=== PATIENT | male | born 1995 | race Caucasian/White ===

== ENCOUNTER 2020-05-07 23:11 | Emergency (ER) | payer SELFPAY ==
[~2020-05-07] VITALS: Ht 190.5 cm; Wt 158.8 kg
[2020-05-08] VITALS: BP 192/125
[2020-05-08 02:11] LABS: Urine Bacteria FEW /hpf (None Seen); Urine Blood Negative /uL (Negative); Urine Mucus FEW (None Seen); Urine Specific Gravity 1.033 (1.001-1.035); Urine WBC 2 /hpf (0 - 3)
== END 2020-05-08 03:14 | disposition home or self-care (01) ==
LOC: ER 23:11
DX: N43.2 Other hydrocele (principal); E86.0 Dehydration
CPT/HCPCS: 76870; 81001